=== PATIENT | female | born 1995 | race African-American/Black ===

== ENCOUNTER 2022-02-02 20:58 | Emergency (ER) | payer BC, SELFPAY ==
[2022-02-02] MEDS ORDERED: Dexamethasone 10 MG/ML VIAL ONE (21:09)
== END 2022-02-02 21:50 | disposition home or self-care (01) ==
LOC: ERS 20:58
DX: J45.901 Unspecified asthma with (acute) exacerbation (principal)
CPT/HCPCS: 93005; 94640; J1100; J7620

== ENCOUNTER 2023-04-06 20:11 | Emergency (ER) | payer BC, SELFPAY ==
[2023-04-06] MEDS ORDERED: Ondansetron ODT 4 MG TAB ONE (20:33)
[2023-04-06] MEDS ORDERED: Acetaminophen 500 MG TAB ONE (20:33)
[2023-04-06 21:34] LABS: SARS-CoV-2 NAA Rapid Test Not Detected (NotDetected)
== END 2023-04-06 21:58 | disposition home or self-care (01) ==
LOC: ERS 20:11
DX: J10.1 Influenza due to other identified influenza virus with other respiratory manifestations (principal)
CPT/HCPCS: 99283; Q0162